=== PATIENT | male | born 1960 ===

== ENCOUNTER 2023-11-16 05:30 | Day surgery (SDC) | payer OTHER ==
[~2023-11-16 05:30] MED LIST: CHILDREN'S ASPI81 MG PO; HYDROCHLOROTH12.5 MG; ISOSORBIDE MONO60 MG; LEVOTHYROXINE25 MCG PO; LIPITOR80 MG PO; PEPCID AC20 MG
[2023-11-16] MEDS ORDERED: CLINDAMYCIN PHOSPHATE 150 MG/ML (300mg) ONE (06:36)
[2023-11-16] MEDS ORDERED: EPINEPHRINE HCL/PF 1 MG/ML AMPUL ONE (07:07)
[2023-11-16] MEDS ORDERED: POVIDONE-IODINE 118 ML BOTT TOP ONE ×2 (07:08→08:06)
[2023-11-16] MEDS ORDERED: LIDOCAINE HCL 1%/EPINEPHRINE 20ML VIAL IJ ONE (07:39)
[2023-11-16] MEDS ORDERED: CIPROFLOXACIN HCL 0.175 MG/DR DROPS OTIC ONE (08:30)
[2023-11-16] MEDS ORDERED: BACITRACIN 28.35 GM OINT.TUBE TOP ONE (08:30)
[2023-11-16] MEDS ORDERED: DEXAMETHASONE SODIUM PHOSPHATE 4 MG/ML VIAL ONE (09:23)
[2023-11-16] MEDS ORDERED: DEXAMETHASONE SODIUM PHOSPHATE 4 MG/ML VIAL IV ONE (09:30)
[2023-11-16] MEDS ORDERED: CIPROFLOXACIN2.5 ML OTIC (10:10)
[2023-11-16] MEDS ORDERED: CLEOCIN HCL300 MG PO (10:10)
== END 2023-11-16 13:15 | disposition home or self-care (01) ==
LOC: CIR.AMB 05:30
PROVIDERS: ATTEND Otolaryngology Otology & Neurotology
DX: H72.02 Central perforation of tympanic membrane, left ear (principal); H70.12 Chronic mastoiditis, left ear; H90.A12 Conductive hearing loss, unilateral, left ear with restricted hearing on the contralateral side; Z88.1 Allergy status to other antibiotic agents; I10 Essential (primary) hypertension; J45.909 Unspecified asthma, uncomplicated